=== PATIENT | female | born 1965 | race Caucasian/White ===

== ENCOUNTER 2023-12-30 13:34 | Emergency (ER) | payer MEDICAID ==
[~2023-12-30] VITALS: Ht 167.6 cm; Wt 77.1 kg
[2023-12-30 13:40] VITALS: BP 132/73; PULSE 82; RESP 18; TEMP 97.9; O2SAT 100
[2023-12-30] MEDS ORDERED: MORPHINE SULFATE 4 MG/ML SYR IM ONE (13:50)
[2023-12-30] MEDS: IBUPROFEN 600 MG TAB PO ONE (15:05)
[2023-12-30] MEDS: HYDROcodone/APAP 5/325 MG 1 TAB TAB PO ONE (15:06)
[2023-12-30] MEDS: methocarbamoL 500 MG TAB PO ONE (15:07)
[2023-12-30] MEDS: ACETAMINOPHEN EXTRA STRENGTH 500 MG TAB PO ONE (15:07)
[2023-12-30] MEDS ORDERED: ACET-8905 PO (16:56)
[2023-12-30] MEDS ORDERED: METH-1867 PO (16:57)
[2023-12-30] MEDS ORDERED: NAPR-54 PO (16:57)
[2023-12-30 17:03] VITALS: BP 128/64; PULSE 78; RESP 18; TEMP 98.2; O2SAT 99
== END 2023-12-30 17:09 | disposition home or self-care (01) ==
LOC: MED 13:34
DX: M62.838 Other muscle spasm (principal); I10 Essential (primary) hypertension; Z79.899 Other long term (current) drug therapy; Z88.5 Allergy status to narcotic agent; V49.9XXA Car occupant (driver) (passenger) injured in unspecified traffic accident, initial encounter; Y93.89 Activity, other specified; Y92.410 Unspecified street and highway as the place of occurrence of the external cause; Y99.8 Other external cause status
CPT/HCPCS: 99284; J2270

== ENCOUNTER 2024-01-20 20:10 | Emergency (ER) | payer MEDICAID, OTHER ==
[~2024-01-20] VITALS: Ht 167.6 cm; Wt 74.8 kg
[~2024-01-20 20:10] MED LIST: ACET-8905 PO; METH-1867 PO; NAPR-54 PO
[2024-01-20 20:20] VITALS: BP 127/80; PULSE 79; RESP 17; TEMP 98.6; O2SAT 99
[2024-01-20] MEDS: ONDANSETRON 4 MG/2 ML VIAL IVP ONE (22:01)
[2024-01-20] MEDS: KETOROLAC 30 MG/ML VIAL IVP ONE (22:01)
[2024-01-20 22:19] LABS: BASOPHILS % (AUTO) 0.6 % (0.0-2.0); EOSINOPHILS # (AUTO) 0.2 K/uL (0-0.4); EOSINOPHILS % (AUTO) 1.9 % (0.0-4.0); HEMATOCRIT 35.2 % (36-48); HEMOGLOBIN 12.1 g/dL (12.0-16.0); LYMPHOCYTES # (AUTO) 3.2 K/uL (2.5-16.5); LYMPHOCYTES % (AUTO) 40.7 % (20.5-51.1); MEAN CORPUSCULAR HEMOGLOBIN 31 pg (27-31); MEAN CORPUSCULAR HGB CONC 35 g/dL (33-37); MEAN CORPUSCULAR VOLUME 90.5 fL (80-94); MONOCYTES # (AUTO) 0.6 K/uL (0.8-1.0); MONOCYTES % (AUTO) 7.4 % (1.7-9.3); NEUTROPHILS # (AUTO) 3.9 K/uL (1.8-7.7); NEUTROPHILS % (AUTO) 49.4 % (42.2-75.2); PLATELET COUNT (AUTO) 317 K/uL (140-450); RED BLOOD CELL COUNT(AUTO) 3.88 MIL/uL (4.20-5.40); RED CELL DISTRIBUTION WIDTH 14.3 % (11.6-13.7); WHITE BLOOD COUNT (AUTO) 7.9 K/uL (4.8-10.8)
[2024-01-20 22:27] LABS: ANION GAP 12.3 (8-16); CALCIUM 8.8 mg/dL (8.5-10.1); CARBON DIOXIDE 27.5 mmol/L (21-32); CREATININE 0.9 mg/dL (0.6-1.3); POTASSIUM 3.8 mmol/L (3.5-5.1)
[2024-01-20 22:31] LABS: ALBUMIN 3.5 g/dL (3.4-5.0); TOTAL BILIRUBIN 0.4 mg/dL (0.0-1.0)
[2024-01-20] MEDS: MORPHINE SULFATE 4 MG/ML SYR IVP ONE (23:21)
[2024-01-20] MEDS: NACL 0.9% 1,000 ML IV SCH (23:23)
[2024-01-20 23:30] VITALS: BP 127/80; PULSE 79; RESP 17; TEMP 98.6; O2SAT 99
== END 2024-01-20 23:30 | disposition home or self-care (01) ==
LOC: MED 20:10
DX: R10.11 Right upper quadrant pain (principal); R19.7 Diarrhea, unspecified; R11.0 Nausea; I10 Essential (primary) hypertension; Z79.1 Long term (current) use of non-steroidal anti-inflammatories (NSAID); Z79.899 Other long term (current) drug therapy; Z88.5 Allergy status to narcotic agent
CPT/HCPCS: 36415; 80048; 80076; 81002; 83690; 85025; 96361; 96374; 96375; 99284; J1885; J2270; J2405; J7030

== ENCOUNTER 2024-02-15 13:35 | Emergency (ER) | payer MEDICAID ==
[~2024-02-15] VITALS: Ht 167.6 cm; Wt 74.8 kg
[~2024-02-15 13:35] MED LIST changes: +NAPR-337 PO; -NAPR-54 PO
[2024-02-15 13:39] VITALS: BP 150/91; PULSE 81; RESP 18; TEMP 98.7; O2SAT 100
== END 2024-02-15 16:07 | disposition left against medical advice (07) ==
LOC: MED 13:35
DX: M25.562 Pain in left knee (principal); Z53.21 Procedure and treatment not carried out due to patient leaving prior to being seen by health care provider
CPT/HCPCS: 73562

== ENCOUNTER 2024-02-16 16:40 | Emergency (ER) | payer MEDICAID ==
[~2024-02-16] VITALS: Ht 167.6 cm; Wt 74.8 kg
[2024-02-16 16:44] VITALS: BP 134/94; PULSE 82; RESP 18; TEMP 98.1; O2SAT 98
[2024-02-16] MEDS ORDERED: ONDANSETRON 4 MG ODT ONE (17:01)
[2024-02-16] MEDS: ONDANSETRON 4 MG ODT PO ONE (17:02)
[2024-02-16] MEDS: HYDROcodone/APAP 5/325 MG 1 TAB TAB PO ONE (17:02)
[2024-02-16 17:20] VITALS: BP 130/78; PULSE 82; RESP 18; TEMP 98.1; O2SAT 99
== END 2024-02-16 17:20 | disposition home or self-care (01) ==
LOC: MED 16:40
DX: S83.92XA Sprain of unspecified site of left knee, initial encounter (principal); I10 Essential (primary) hypertension; Z79.1 Long term (current) use of non-steroidal anti-inflammatories (NSAID); Z79.899 Other long term (current) drug therapy; Z88.5 Allergy status to narcotic agent; W19.XXXA Unspecified fall, initial encounter; Y93.89 Activity, other specified; Y92.89 Other specified places as the place of occurrence of the external cause; Y99.8 Other external cause status
CPT/HCPCS: 99283; Q0162

== ENCOUNTER 2024-05-16 12:04 | Emergency (ER) | payer MEDICAID ==
[~2024-05-16] VITALS: Ht 167.6 cm; Wt 76.4 kg
[2024-05-16 12:15] VITALS: BP 133/91; PULSE 87; RESP 20; TEMP 98.4; O2SAT 99
[2024-05-16] MEDS ORDERED: PRED50TA2 PO (14:42)
[2024-05-16 14:45] VITALS: O2SAT 99
[2024-05-16] MEDS: predniSONE 20 MG TAB PO ONE (14:49)
[2024-05-16] MEDS: KETOROLAC 30 MG/ML VIAL IM ONE (14:52)
[2024-05-16 15:30] VITALS: BP 134/88; PULSE 88; RESP 16; TEMP 98; O2SAT 99
== END 2024-05-16 15:30 | disposition home or self-care (01) ==
LOC: MED 12:04
DX: G89.29 Other chronic pain (principal); M54.9 Dorsalgia, unspecified; I10 Essential (primary) hypertension; Z79.1 Long term (current) use of non-steroidal anti-inflammatories (NSAID); Z79.899 Other long term (current) drug therapy; Z88.5 Allergy status to narcotic agent
CPT/HCPCS: 96372; 99283; J1885; J7512

== ENCOUNTER 2024-05-28 14:06 | Emergency (ER) | payer MEDICAID ==
[~2024-05-28] VITALS: Ht 167.6 cm; Wt 83.9 kg
[~2024-05-28 14:06] MED LIST changes: +PRED50TA2 PO
[2024-05-28 14:11] VITALS: BP 132/93; PULSE 84; RESP 17; TEMP 97.6; O2SAT 98
[2024-05-28] MEDS ORDERED: LIDOCAINE 5% 1 EA PATCH TP ONE (15:36)
[2024-05-28] MEDS: LIDOCAINE 5% 1 EA PATCH TP ONE (15:38)
[2024-05-28] MEDS: CYCLOBENZAPRINE 10 MG TAB PO ONE (15:39)
[2024-05-28] MEDS: KETOROLAC 30 MG/ML VIAL IM ONE (15:39)
[2024-05-28] MEDS: MORPHINE SULFATE 4 MG/ML SYR IM ONE (16:04)
[2024-05-28] MEDS ORDERED: NAPR-337 PO (17:36)
[2024-05-28] MEDS ORDERED: LID5T TP (17:36)
[2024-05-28] MEDS ORDERED: CYCL-711 PO (17:37)
[2024-05-28] MEDS: oxyCODONE/APAP 5/325 MG 1 TAB TAB PO ONE (17:47)
== END 2024-05-28 17:50 | disposition home or self-care (01) ==
LOC: MED 14:06
DX: S33.5XXA Sprain of ligaments of lumbar spine, initial encounter (principal); M25.551 Pain in right hip; M25.552 Pain in left hip; I10 Essential (primary) hypertension; Z79.899 Other long term (current) drug therapy; Z88.5 Allergy status to narcotic agent; V89.2XXA Person injured in unspecified motor-vehicle accident, traffic, initial encounter; Y93.89 Activity, other specified; Y92.410 Unspecified street and highway as the place of occurrence of the external cause; Y99.8 Other external cause status
CPT/HCPCS: 72110; 72170; 74176; 96372; 99285; J1885; J2270